=== PATIENT | female | born 1970 | race Two or more races ===

== ENCOUNTER → 2021-01-09 | Outpatient (CLI) | payer BC ==
--- NOTE | 2021-01-18 11:46 | MM ---
Reason for exam: screening (asymptomatic). Last mammogram was performed 3 years ago. Physical Findings: A clinical breast exam by your physician is recommended on an annual basis and results should be correlated with mammographic findings. MG 3D Screening Mammo W/Cad Bilateral CC and MLO view(s) were taken. Prior study comparison: December 25, 2017, mammogram, performed at [facility]. April 08, 2016, mammogram, performed at [facility]. April 03, 2016, mammogram, performed at [facility]. The breast tissue is heterogeneously dense. This may lower the sensitivity of mammography. There are benign appearing round calcifications bilaterally. Asymmetric breast tissue right outer anterior breast, stable from 2017. There is no discrete abnormality. Stable benign bilateral axillary lymph nodes. ASSESSMENT: Benign, BI-RAD 2 RECOMMENDATION: Routine screening mammogram of both breasts in 1 year.
== END | disposition home or self-care (01) ==
LOC: RADMAMWWP 09:34
PROVIDERS: ATTEND Family Medicine
DX: Z12.31 Encounter for screening mammogram for malignant neoplasm of breast (principal)
CPT/HCPCS: 77063; 77067

== ENCOUNTER → 2023-01-31 | Outpatient (CLI) | payer BC ==
--- NOTE | 2023-02-03 07:56 | MM ---
Reason for Exam: Screening (asymptomatic). Last mammogram was performed 2 year(s) and 0 month(s) ago. Patient History: Menarche at age 14. First Full-Term at age 28. Postmenopausal. Patient has history of breast feeding. Risk Values: Lena 5 year model risk: 1.1%. NCI Lifetime model risk: 8.8%. Prior Study Comparison: 04/08/2016 Screening Mammogram, [facility] . 12/25/2017 Screening Mammogram, [facility] . 01/09/2021 Bilateral Screening Mammogram, [facility]. Tissue Density: The breast tissue is heterogeneously dense. This may lower the sensitivity of mammography. Findings: Analyzed By CAD. Left breast: Asymmetry left breast on cc view posterior depth measuring 8 mm 10.2 cm from the nipple. Right breast: There is no suspicious group of microcalcifications or new suspicious mass. Overall Assessment: Incomplete: need additional imaging evaluation, BI-RAD 0 Management: Diagnostic Mammogram of the left breast. [facility] will attempt to contact patient to return for supplemental views and ultrasound if indicated. Patient should continue monthly self-breast exams. A clinical breast exam by your physician is recommended on an annual basis. This exam should not preclude additional follow-up of suspicious palpable abnormalities. Note on Lena scores and lifetime risk: 1. A Lena score greater than 3% is considered moderate risk. If this is the case, consider specialist referral to assess eligibility for a risk reducing agent. 2. If overall lifetime risk for the development of breast cancer is 20% or higher, the patient may qualify for future screening with alternating mammogram and breast MRI. Electronically signed and approved by: Edmar Cardenas DO
== END | disposition home or self-care (01) ==
LOC: RADMAMWWP 11:03
PROVIDERS: ATTEND Family Medicine
DX: Z12.31 Encounter for screening mammogram for malignant neoplasm of breast (principal); Z78.0 Asymptomatic menopausal state
CPT/HCPCS: 77063; 77067

== ENCOUNTER → 2023-02-07 | Outpatient (CLI) | payer BC ==
--- NOTE | 2023-02-07 15:11 | MM ---
Reason for Exam: Follow-up at short interval from prior study. Last screening mammogram was performed less than 1 month ago. Patient History: Menarche at age 14. First Full-Term at age 28. Postmenopausal. Patient has history of breast feeding. Risk Values: Lena 5 year model risk: 1.1%. NCI Lifetime model risk: 8.8%. Prior Study Comparison: 12/25/2017 Screening Mammogram, [facility] [place] . 01/09/2021 Bilateral Screening Mammogram, [facility]. 01/31/2023 Bilateral MG 3D screening mammo w/cad, [facility]. Tissue Density: Left: The breast tissue is heterogeneously dense. This may lower the sensitivity of mammography. Findings: Analyzed By CAD. Mass persists, however it is fainter on today's exam approximately 10 cm from the nipple measuring 9 x 6 mm in the lateral aspect on CC view. Overall Assessment: Incomplete: need additional imaging evaluation, BI-RAD 0 Management: Diagnostic Breast Ultrasound of the left breast. Results were given to the patient verbally at the time of exam. Patient should continue monthly self-breast exams. A clinical breast exam by your physician is recommended on an annual basis. This exam should not preclude additional follow-up of suspicious palpable abnormalities. Note on Lena scores and lifetime risk: 1. A Lena score greater than 3% is considered moderate risk. If this is the case, consider specialist referral to assess eligibility for a risk reducing agent. 2. If overall lifetime risk for the development of breast cancer is 20% or higher, the patient may qualify for future screening with alternating mammogram and breast MRI. Electronically signed and approved by: Edmar Cardenas DO
--- NOTE | 2023-02-07 15:37 | USB ---
Reason for Exam: Additional evaluation requested from abnormal screening. Patient History: Menarche at age 14. First Full-Term at age 28. Postmenopausal. Patient has history of breast feeding. Risk Values: Lena 5 year model risk: 1.1%. NCI Lifetime model risk: 8.8%. Technique: Method: Targeted. Prior Study Comparison: 12/25/2017 Screening Mammogram, [facility] . 01/09/2021 Bilateral Screening Mammogram, [facility]. 01/31/2023 Bilateral MG 3D screening mammo w/cad, [facility]. Findings: The lateral section of the breast of the left breast, the axilla of the left breast and the retroareolar of the left breast were scanned. Technique utilized:US breast limited LT Image; Ultrasound imaging of: Area of concern, retroareolar region and axilla. There are few dilated ducts posterior to the nipple. Lesion 10 cm from nipple not definitively visualized. Overall Assessment: Probably benign, BI-RAD 3 Management: Diagnostic Mammogram of the left breast in 3 months. A clinical breast exam by your physician is recommended on an annual basis and results should be correlated with mammographic findings. This exam should not preclude additional follow-up of suspicious palpable abnormalities. Results were given to the patient verbally at the time of exam. Electronically signed and approved by: Edmar Cardenas DO
== END | disposition home or self-care (01) ==
LOC: RADMAMWWP 14:44
PROVIDERS: ATTEND Family Medicine
DX: R92.332 Mammographic heterogeneous density, left breast (principal); Z78.0 Asymptomatic menopausal state
CPT/HCPCS: 77061; 77065

== ENCOUNTER → 2023-06-18 | Outpatient (CLI) | payer BC ==
--- NOTE | 2023-06-18 08:12 | MM ---
Reason for Exam: Follow-up at short interval from prior study. Last screening mammogram was performed 5 month(s) ago. Patient History: Menarche at age 14. First Full-Term at age 28. Postmenopausal. Patient has history of breast feeding. Risk Values: Lena 5 year model risk: 1.1%. NCI Lifetime model risk: 8.6%. Prior Study Comparison: 04/03/2016 Screening Mammogram, [facility] . 04/08/2016 Screening Mammogram, [facility] . 12/25/2017 Screening Mammogram, [facility] . 01/09/2021 Bilateral Screening Mammogram, [facility]. 01/31/2023 Bilateral MG 3D screening mammo w/cad, [facility]. 02/07/2023 Left MG 3D work up w/cad , [facility]. Tissue Density: Left: The breasts are heterogeneously dense, which may obscure small masses. Findings: Analyzed By CAD. 6.5 mm nodular density lower outer left breast approximately 9 to 10 cm from the nipple. Ultrasound is recommended. Overall Assessment: Incomplete: need additional imaging evaluation, BI-RAD 0 Management: Diagnostic Breast Ultrasound of the left breast. . Results were given to the patient verbally at the time of exam. Patient should continue monthly self-breast exams. A clinical breast exam by your physician is recommended on an annual basis. This exam should not preclude additional follow-up of suspicious palpable abnormalities. Note on Lena scores and lifetime risk: 1. A Lena score greater than 3% is considered moderate risk. If this is the case, consider specialist referral to assess eligibility for a risk reducing agent. 2. If overall lifetime risk for the development of breast cancer is 20% or higher, the patient may qualify for future screening with alternating mammogram and breast MRI. Electronically signed and approved by: Heriberto Hilton M.D. Radiologis
--- NOTE | 2023-06-18 08:40 | USB ---
Patient History: Menarche at age 14. First Full-Term at age 28. Postmenopausal. Patient has history of breast feeding. Risk Values: Lena 5 year model risk: 1.1%. NCI Lifetime model risk: 8.6%. Technique: Method: Targeted. Prior Study Comparison: 01/09/2021 Bilateral Screening Mammogram, [facility]. 01/31/2023 Bilateral MG 3D screening mammo w/cad, [facility]. 02/07/2023 Left MG 3D work up w/cad , [facility]. Findings: The lower outer quadrant of the left breast, the axilla of the left breast and the retroareolar of the left breast were scanned. No solid or cystic masses are identified.. Overall Assessment: Probably benign, BI-RAD 3 Management: Diagnostic Mammogram of the left breast in 6 months. A clinical breast exam by your physician is recommended on an annual basis and results should be correlated with mammographic findings. This exam should not preclude additional follow-up of suspicious palpable abnormalities. Results were given to the patient verbally at the time of exam. Electronically signed and approved by: Heriberto Hilton M.D. Radiologis
== END | disposition home or self-care (01) ==
LOC: RADMAMWWP 07:19
PROVIDERS: ATTEND Family Medicine
DX: R92.8 Other abnormal and inconclusive findings on diagnostic imaging of breast (principal); R92.332 Mammographic heterogeneous density, left breast; Z78.0 Asymptomatic menopausal state
CPT/HCPCS: 77061; 77065

== ENCOUNTER → 2023-12-25 | Outpatient (CLI) | payer BC ==
--- NOTE | 2023-12-25 08:37 | MM ---
Reason for Exam: Follow-up at short interval from prior study. Last screening mammogram was performed 11 month(s) ago. Patient History: Menarche at age 14. First Full-Term at age 28. Postmenopausal. Patient has history of breast feeding. Risk Values: Lena 5 year model risk: 1.1%. NCI Lifetime model risk: 8.6%. Prior Study Comparison: 04/03/2016 Screening Mammogram, [facility] . 04/08/2016 Screening Mammogram, [facility] . 12/25/2017 Screening Mammogram, [facility] . 01/09/2021 Bilateral Screening Mammogram, [facility]. 01/31/2023 Bilateral MG 3D screening mammo w/cad, [facility]. 02/07/2023 Left MG 3D work up w/cad LT, [facility]. 06/18/2023 Left MG 3D diag mammo w/cad LT, [facility]. Tissue Density: Left: The breasts are heterogeneously dense, which may obscure small masses. Findings: Analyzed By CAD. 2 masses are seen in the left breast posterior nipple line middle depth at 4.5 and 2.6 cm from the nipple measuring 8 and 6 mm respectively. Overall Assessment: Incomplete: need additional imaging evaluation, BI-RAD 0 Management: Diagnostic Breast Ultrasound of the left breast. Results were given to the patient verbally at the time of exam. Patient should continue monthly self-breast exams. A clinical breast exam by your physician is recommended on an annual basis. This exam should not preclude additional follow-up of suspicious palpable abnormalities. Note on Lena scores and lifetime risk: 1. A Lena score greater than 3% is considered moderate risk. If this is the case, consider specialist referral to assess eligibility for a risk reducing agent. 2. If overall lifetime risk for the development of breast cancer is 20% or higher, the patient may qualify for future screening with alternating mammogram and breast MRI. [facility], , 12/25/2023 8:34 AM. Electronically signed and approved by: Edmar Cardenas DO
--- NOTE | 2023-12-25 09:05 | USB ---
Reason for Exam: Additional evaluation requested from prior study. Patient History: Menarche at age 14. First Full-Term at age 28. Postmenopausal. Patient has history of breast feeding. Risk Values: Lena 5 year model risk: 1.1%. NCI Lifetime model risk: 8.6%. Technique: Method: Targeted. Doppler: Color. Patient Position: Supine. Prior Study Comparison: 01/31/2023 Bilateral MG 3D screening mammo w/cad, [facility]. 02/07/2023 Left MG 3D work up w/cad LT, [facility]. 06/18/2023 Left MG 3D diag mammo w/cad LT, [facility]. Findings: The periareolar of the left breast, the axilla of the left breast and the retroareolar of the left breast were scanned. Technique utilized:US breast limited LT Image; Ultrasound imaging of: Area of concern, retroareolar region and axilla. Suspected heterogenous tissue with a few scattered dilated ducts in area of abnormality which correlate with mammography. These may have been present back to at least 02/07/2023 however the projections on mammography are not the same. These have not definitively changed in size comparing to 06/18/2023. Precautionary 2 month follow-up recommended. Overall Assessment: Probably benign, BI-RAD 3 Management: Diagnostic Mammogram of the right breast in 3 months. Diagnostic Breast Ultrasound of the right breast in 3 months. A clinical breast exam by your physician is recommended on an annual basis and results should be correlated with mammographic findings. This exam should not preclude additional follow-up of suspicious palpable abnormalities. Results were given to the patient verbally at the time of exam. [facility], , 12/25/2023 9:02 AM. Electronically signed and approved by: Edmar Cardenas DO
== END | disposition home or self-care (01) ==
LOC: RADMAMWWP 07:49
PROVIDERS: ATTEND Family Medicine
CPT/HCPCS: 77061; 77065